=== PATIENT | female | born 1960 | race Caucasian/White ===

== ENCOUNTER → 2017-11-15 11:10 | Outpatient (CLI) | payer MEDICAID ==
[~2017-11-15] VITALS: Ht 157.5 cm; Wt 78.2 kg
--- NOTE | ~2017-11-15 | HEMODYNAMI ---
PATIENT:CINDY ALVAREZ MEDICAL RECORD: [id number] : 56 LOCATION:D.CAT ADMISSION DATE: 11/15/17 Generatedon:11/15/201713:28 Patient name: CINDY ALVAREZ Patient #: [id number] SSN: : 1960 Date of study: 11/15/2017 Page: Of Hemodynamic Procedure Report Patient Data Patient Demographics Procedure consent was obtained First Name: CINDY Gender: Female Last Name: ANTONIO : 1960 [facility] Initial: NI Age: 57 year(s) Patient #: [id number] Race: Unknown Additional ID: [id number] Contact details Address: [address] [place] [address] [place] State: [place] City: [facility] Zip code: [address] Past Medical History Allergies: No known allergies Admission Admission Data Admission Date: 11/15/2017 Admission Time: 11:10 Procedure Procedure Types Cath Procedure Diagnostic Procedure LHC LHC w/Coronaries Aortic Root Angiography Sedation Charges Moderate Sedation up to 15 minutes Procedure Description Procedure Date Procedure Date: 11/15/2017 Procedure Start Time: 13:02 Procedure End Time: 13:28 Procedure Staff Name Function Harry Valladares MD Performing Physician Marilee Castro RT Monitor Jose Alejandro Marquez RN Nurse Estrellita Domingo RN Nurse Mitzi Mandujano RT Scrub 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 [employer] Procedure Data Cath Procedure Fluoroscopy Diagnostic fluoroscopy Total fluoroscopy Time: 1.9 time: 1.9 min min Diagnostic fluoroscopy Total fluoroscopy dose: 407 dose: 407 mGy mGy Contrast Material Contrast Material Type Amount (ml) Isovue 300 78 Entry Location Entry Primary Successful Side Size Upsize Upsize Entry Closure Succes sful Closure Location (Fr) 1 (Fr) 2 (Fr) Remarks Device Remarks Femoral Right 5 Fr Exoseal artery Estimated blood loss: 5 ml Diagnostic catheters Device Type Used For End Catheter Placement MULTIPACK JL 4.0 5Fr Left Coronary catheter Angiography MULTIPACK 3DRC 5Fr Right Coronary catheter Angiography MULTIPACK Pigtail 5 Fr LV Angiography catheter MULTIPACK Pigtail 5 Fr Aortic Root catheter Angiography Procedure Complications No complications Procedure Medications Medication Administration Route Dosage 0.9% NaCl I.V. 100 ml/hr Oxygen etCO2 Nasal cannula 2 l/min Heparin Flush Bag added to field 2 bags (1000units/500ml NS) Lidocaine 2% added to field 20 Versed I.V. 2 mg Fentanyl I.V. 100 mcg Versed I.V. 2 mg Fentanyl I.V. 100 mcg Versed I.V. 2 mg Fentanyl I.V. 100 mcg Versed I.V. 2 mg Fentanyl I.V. 100 mcg Radial Cocktail added to field 1 syringe (Verapomil 2mg/Nitro 400mcg/Heparin 1500units) Hemodynamics Rest Heart Rate: 88 (bpm) Pressure Samples Time Site Value (mmHg) Purpose Heart Use Rate(bpm) 13:19 LV 203/41,19 EDP 128 Gradients Valve Time Site Site Mean SEP/DFP Peak To Heart Use 1 2 (mmHg) (sec/min) Peak Rate (mmHg) (bpm) Aortic 13:20 LV AO 92 Snapshots Pre Cath Intra NCS Post Cath Vital Signs Time Heart Resp SPO2 etCO2 NIBP (mmHg) Rhythm Pain Sedation Rate (ipm) (%) (mmHg) Status Level (bpm) 12:46:06 86 16 100 30 181/84(154) NSR 0 (11) 10(A) , No pain 12:51:04 85 15 98 36.2 197/81(133) NSR 0 (11) 10(A) , No pain 12:55:52 93 16 98 34.6 178/92(133) NSR 0 (11) 10(A) , No pain 13:00:47 84 34 99 28.6 173/76(131) NSR 0 (11) 10(A) , No pain 13:05:38 86 83 94 39.9 163/75(111) NSR 0 (11) 10(A) , No pain 13:10:25 95 29 94 40.7 167/86(128) NSR 0 (11) 10(A) , No pain 13:15:56 87 64 99 36.9 154/69(107) NSR 0 (11) 10(A) , No pain 13:20:43 89 56 98 41.4 172/84(114) NSR 0 (11) 10(A) , No pain 13:25:34 94 18 98 42.1 169/83(120) NSR 0 (11) 10(A) , No pain Medications Time Medication Route Dose Verified Delivered Reason Notes Effectiveness by by 12:50:00 0.9% NaCl I.V. 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 2 mg Harry Estrellita for sedation Blaine Domingo RN 13:00:59 Fentanyl I.V. 100 mcg Harry Estrellita for sedation Blaine Domingo RN 13:07:59 Versed I.V. 2 mg Harry Estrellita for sedation Blaine Domingo RN 13:08:04 Fentanyl I.V. 100 mcg Harry Estrellita for sedation Blaine Domingo RN 13:11:40 Versed I.V. 2 mg Harry Estrellita for sedation Blaine Domingo RN 13:11:43 Fentanyl I.V. 100 mcg Harry Estrellita for sedation Blaine Domingo RN 13:19:02 Versed I.V. 2 mg Harry Estrellita for sedation Blaine Domingo RN 13:19:11 Fentanyl I.V. 100 mcg Harry Estrellita for sedation Blaine Domingo RN 13:19:18 Radial Cocktail added 1 Harry Harry for not (Verapomil to syringe Blaine Valladares MD vasodilation used, 2mg/Nitro field femoral 400mcg/Heparin access 1500units) gained. Procedure Log Time Note 12:32:37 Xavi Fall RT(R) sent for patient. Start room use. 12:32:38 Time tracking: Regular hours (M-F 7:00 - 5:00) 12:32:42 Plan of Care:Hemodynamics will remain stable., Cardiac rhythm will remain stable., Comfort level will be maintained., Respiratory function will remain adequate., Patient/ family verbilizes understanding of procedure., Procedure tolerated without complication., Recovers from procedure without complications.. 12:33:24 Patient received from Pre/Post Procedure Room to CCL 1 Alert and oriented. Tansferred to table in Supine position. 12:33:25 Warm blankets applied, and amirah hugger turned on for patient comfort. 12:33:26 Correct patient and procedure confirmed by team. 12:33:27 Signed procedure consent form obtained from patient. 12:33:28 ECG and BP/O2 sat monitors applied to patient. 12:33:29 Full Disclosure recording started 12:44:11 Vital chart was started 12:48:22 Baseline sample Acquired. 12:48:26 Rhythm: sinus rhythm 12:48:42 H&P Date Dictated: 11/14/2017 Within 30 days and on chart., H&P Addendum completed by physician on day of procedure. (MUST COMPLETE FOR ALL OUTPATIENTS). 12:48:43 Pre-procedure instructions explained to patient. 12:48:44 Pre-op teaching completed and patient verbalized understanding. 12:48:46 Family in patients room. 12:48:48 Patient NPO since Midnight. 12:48:55 Patient allergic to No known allergies 12:48:58 Is the patient allergic to Iodine/contrast media? No. 12:49:00 Is patient on blood thinner?No 12:49:03 Patient diabetic? No. 12:49:10 Previous problem with sedation/anesthesia? No ? 12:49:11 Snore? Yes 12:49:12 Sleep apnea? No 12:49:13 Deviated septum? No 12:49:14 Opens mouth fully? Yes 12:49:15 Sticks out tongue? Yes 12:49:18 Airway obstruction? Yes COPD 12:49:21 Dentures? No ? 12:49:25 Pre procedure: right dorsailis pedis pulse 2+ Normal; easily identifiable; not easily obliterated 12:49:27 Modified Ector's test Ulnar < 7 seconds 12:49:29 Patient pain scale 0/10 ?. 12:49:40 IV patent on arrival in left forearm with 0.9% NaCl at O. 12:49:43 Lab results completed and on chart. 12:49:50 Right Radial & Right Groin area was prepped with chlora-prep and draped in sterile fashion 12:49:51 Alarms reviewed by Wolf N. 12:49:51 Sharps counted by scrub and verified by R.N. 12:49:56 ACIST Syringe (43362) opened to sterile field. 12:49:56 Medline Cath Pack ([id number]) opened to sterile field. 12:49:57 Bag Decanter (2002S) opened to sterile field. 12:49:57 DIAGNOSTIC WIRE .035 260cm J wire ([id number]) opened to sterile field. 12:49:58 ACIST Hand Control (79585) opened to sterile field. 12:49:58 ACIST Manifold (46439) opened to sterile field. 12:50:00 0.9% NaCl 100 ml/hr I.V. was administered by Estrellita Domingo RN; used for procedure; 12:50:00 MBrace Wrist Support ([id number]) opened to sterile field. 12:50:01 SHEATH 6Fr Prelude Radial ([id number]) opened to sterile field. 12:50:11 Oxygen 2 l/min etCO2 Nasal cannula was administered by Estrellita Domingo RN; used for procedure; 12:56:28 Final Timeout: patient, procedure, and site verified with staff and physician. All members of the team are in agreement. 12:56:35 Right Radial site verified by team. 12:56:38 Physical assessment completed. ASA score P 2 - A patient with mild systemic disease as per Harry Valladares MD. 12:56:41 Sedation plan: IV Moderate Sedation Medication:Versed, Fentanyl 12:56:54 Zero performed for pressure channel P1 12:58:18 Heparin Flush Bag (1000units/500ml NS) 2 bags added to field was administered by Estrellita Domingo RN; used for procedure; 12:58:28 Lidocaine 2% 20ml vial added to field was administered by Harry Valladares MD; for local anesthetic; 13:00:48 Versed 2 mg I.V. was administered by Estrellita Domingo RN; for sedation; 13:00:59 Fentanyl 100 mcg I.V. was administered by Estrellita Domingo RN; for sedation; 13:02:01 Procedure started. 13:02:45 Local anesthetic to right radial artery with Lidocaine 2% by Harry Valladares MD.INITIAL ACCESS ONLY 13:07:59 Versed 2 mg I.V. was administered by Estrellita Domingo RN; for sedation; 13:08:04 Fentanyl 100 mcg I.V. was administered by Estrellita Domingo RN; for sedation; 13:09:38 UNABLE TO ACCESS RRA. 13:09:57 Use device set Multipack Set 13:10:09 SHEATH Prelude 5Fr 0.035 ([id number]) opened to sterile field. 13:10:10 DIAGNOSTIC Multipack 5Fr catheter set ([id number]) opened to sterile field. 13:10:31 Local anesthetic to right femoral artery with Lidocaine 2% by aHrry Valladares MD.ADDITIONAL ACCESS 13:11:40 Versed 2 mg I.V. was administered by Estrellita Domingo RN; for sedation; 13:11:43 Fentanyl 100 mcg I.V. was administered by Estrellita Domingo RN; for sedation; 13:13:28 A 5 Fr sheath was inserted into the Right Femoral artery 13:14:19 A MULTIPACK JL 4.0 5Fr catheter was advanced over the wire and used for Left Coronary Angiography. 13:16:08 Catheter removed. 13:16:16 A MULTIPACK 3DRC 5Fr catheter was advanced over the wire and used for Right Coronary Angiography. 13:17:47 Catheter removed. 13:18:11 A MULTIPACK Pigtail 5 Fr catheter was advanced over the wire and used for LV Angiography. 13:18:23 EXOSEAL 5Fr (EX500) opened to sterile field. 13:19:02 Versed 2 mg I.V. was administered by Estrellita Domingo RN; for sedation; 13:19:11 Fentanyl 100 mcg I.V. was administered by Estrellita Domingo RN; for sedation; 13:19:18 Radial Cocktail (Verapomil 2mg/Nitro 400mcg/Heparin 1500units) 1 syringe added to field was administered by Harry Valladares MD; for vasodilation; not used, femoral access gained. 13:19:50 LV gram done using RICHTER 13:19:53 EF : 60 % 13:19:56 Injector settings: Ml/sec: 10, Volume: 20, 13:20:28 A MULTIPACK Pigtail 5 Fr catheter was advanced over the wire and used for Aortic Root Angiography. 13:21:05 Catheter removed. 13:21:24 Sheath removed intact; hemostasis achieved with Exoseal to the Right Femoral artery. 13:21:30 Procedure ended.(Physican Out) 13:22:29 Fluoroscopy time 01.90 minutes. 13:22:33 Fluoroscopy dose: 407 mGy 13:22:33 Flurop Dose total: 407 13:23:25 Contrast amount:Isovue 300 78ml. 13:23:27 Sharps counted by scrub and verified by R.N. 13:23:29 Insertion/operative site no bleeding no hematoma. 13:23:32 Post-op/insertion site Right Femoral artery dressed using a 4 x 4 and Tegaderm. 13:23:36 Post right femoral artery:stable, clean and dry 13:23:38 Post Procedure Pulses reassessed and unchanged 13:23:40 Post-procedure physical assessment completed. ASA score P 2 - A patient with mild systemic disease as per Harry Valladares MD. 13:23:42 Post procedure rhythm: unchanged. 13:23:45 Estimated blood loss: 5 ml 13:23:47 Post procedure instruction explained to patient.Patient verbalizes understanding. 13:25:24 Patient needs reinforcement of post procedure teaching. 13:25:45 Procedure type changed to Cath procedure, Diagnostic procedure, LHC, LHC w/Coronaries, Aortic Root Angiography, Sedation Charges, Moderate Sedation up to 15 minutes 13:26:13 Procedure and supply charges have been captured, reviewed, submitted and are correct. 13:26:17 Procedure Complication : No complications 13:26:19 See physician's report for complete and final results. 13:26:39 Vital chart was stopped 13:28:04 Report given to Pre/Post Procedure Room. 13:28:07 Patient transfered to Pre/Post Procedure Room with Stretcher. 13:28:08 Procedure ended. 13:28:08 Full Disclosure recording stopped 13:28:17 End room use (Document Last) Device Usage Item Name Manufacture Quantity Catalog Number Hospital Part Current M inimal Lot# / Charge Number Stock Stock Serial# Code ACIST Syringe Acist 1 46951 994420 970034 680371 2 0 (07697) [employer] Medline Cath Cardinal 1 [id number] 404651 84268 374936 5 [employer] ([id number]) Bag Decanter Microtek 1 108473 39740 582996 5 () [employer] Inc. DIAGNOSTIC WIRE St Dago 1 776036 881242 445622 855528 3 0 .035 260cm J wire (593484) ACIST Hand Acist 1 34610 184032 671912 238501 5 Control (08838) [employer] ACIST Manifold Acist 1 24529 387080 166119 891439 5 (15373) [employer] MBrace Wrist Advanced 1 140-0250-00 520304 73948 428510 5 Support Vascular ([id number]) Dynamics SHEATH 6Fr Merit 1 [id number] 639383 065535 078894 5 Prelude Radial Medical ([id number]) SHEATH Prelude Merit 1 [id number] 171690 885171 924113 5 5Fr 0.035 Medical ([id number]-7O-33-035) DIAGNOSTIC Cardinal 1 [id number] 128895 30494 384282 3 0 Multipack 5Fr Health catheter set ([id number]) MULTIPACK JL Cardinal 1 [id number] 5 4.0 5Fr Health catheter MULTIPACK 3DRC Cardinal 1 [id number] 5 5Fr catheter Health MULTIPACK Cardinal 1 [id number] 5 Pigtail 5 Fr Health catheter EXOSEAL 5Fr Cardinal 1 EX500 069822 428218 799192 1 0 (EX500) Health Signature Audit [place] Stage Time Signature Unsigned Intra-Procedure 11/15/2017 Marilee 1:28:34 PM Counts RT(R) Signatures Monitor : Marilee Signature : Counts RT Date : Time : [address] [id number]
[~2017-11-15 11:10] MED LIST: ANORO ELLIPTA1 EACH INH; CELEBREX200 MG PO; IBUPROFEN800 MG PO; LIPITOR20 MG PO; LISINOPRIL10 MG PO; ROBAXIN500 MG PO
[2017-11-15 11:54] LABS: BASOPHILS 0.9 % (0-2); EOSINOPHILS 3.7 % (0-7); HEMATOCRIT 33.5 % (36.0-48.0); HEMOGLOBIN 11.3 g/dL (12-16); IMMATURE GRANULOCYTES 0.3 % (0-5); LYMPHOCYTES 26.7 % (15-50); MCH 30.9 pg (26.0-34.0); MCHC 33.7 g/dL (31.0-37.0); MCV 91.5 fL (80.0-100.0); MEAN PLATELET VOLUME 9.9 fL (7.4-10.4); MONOCYTES 7.1 % (2-11); NEUTROPHILS 61.3 % (40-80); PLATELET COUNT 149 10x3/uL (130-400); RBC 3.66 10x6/uL (4.00-5.40); RDW 12.9 % (11.5-14.5); WBC 7.5 10x3/uL (4.8-10.8)
[2017-11-15 12:00] VITALS: BP 176/66; Ht 157.5 cm; Wt 78.2 kg
[2017-11-15 12:14] LABS: CALC OSMOLALITY 278 mosm/kg (275-300); CALCIUM 8.7 mg/dL (8.5-10.1); CARBON DIOXIDE 21.4 mmol/L (21.0-32.0); CHLORIDE - SERUM 108 mmol/L (98-107); CREATININE - SERUM 0.8 mg/dL (0.6-1.3); GLUCOSE 103 mg/dL (74-106); POTASSIUM - SERUM 4.6 mmol/L (3.5-5.1); SODIUM 138 mmol/L (136-145); UREA NITROGEN 20 mg/dL (7-18); eGFR NON AFRICAN AMERICAN 78 mL/min (90-120)
== END | disposition home or self-care (01) ==
LOC: D.CATH 10-24 13:30
PROVIDERS: Internal Medicine Cardiovascular Disease
DX: I20.9 Angina pectoris, unspecified (principal); I35.1 Nonrheumatic aortic (valve) insufficiency; Z01.812 Encounter for preprocedural laboratory examination

== ENCOUNTER → 2018-10-20 13:30 | Outpatient (CLI) | payer MEDICAID ==
[2017-11-15 12:00] VITALS: BMI 31.5
== END | disposition home or self-care (01) ==
LOC: D.MAMMO 11:15
PROVIDERS: ATTEND Family Medicine
DX: Z12.31 Encounter for screening mammogram for malignant neoplasm of breast (principal)